=== PATIENT | male | born 1975 | race African-American/Black ===

== ENCOUNTER 2017-06-27 09:15 | Emergency (ER) | payer BC, OTHER ==
[2017-06-27] MEDS: predniSONE 20 MG TAB PO (11:04)
[2017-06-27] MEDS: IPRATROPIUM (NEB) 0.5 MG/2.5 ML AMP HHN (11:10)
[2017-06-27] MEDS: ALBUTEROL 0.083% (NEB) 2.5 MG/3 ML AMP HHN (11:10)
== END 2017-06-27 12:52 | disposition home or self-care (01) ==
LOC: FTE 09:15
DX: J45.901 Unspecified asthma with (acute) exacerbation (principal)
CPT/HCPCS: 94644; 99284-25

== ENCOUNTER 2017-10-17 23:48 | Emergency (ER) | payer BC ==
[2017-10-18] MEDS: SOD CHLORIDE 0.9% 1,000 ML IV (00:10)
[2017-10-18] MEDS: OXYMETAZOLINE 0.05% 15 ML NAS SPRAY NASAL (00:10)
[2017-10-18] MEDS: morphine 4 MG/ML VIAL IV ×2 (00:10→02:30)
[2017-10-18] MEDS: ONDANSETRON 4 MG INJ IV (00:10)
[2017-10-18 01:33] LABS: ADD MAN DIFF? NO
[2017-10-18 01:36] LABS: WHITE BLOOD COUNT 9.4 10^3/ul (4.8-10.8)
[2017-10-18 01:36] LABS: BASOPHILS % 0.2 % (0.0-2.0); EOSINOPHILS # 0.4 10^3/ul (0.0-0.5); EOSINOPHILS % 3.7 % (0.0-7.0); HEMATOCRIT 38.2 % (42.0-52.0); HEMOGLOBIN 12.4 g/dl (14.0-18.0); LYMPHOCYTES # 2.6 10^3/ul (0.8-2.9); LYMPHOCYTES % 28.2 % (15.0-51.0); MEAN CORPUSCULAR HEMOGLOBIN 25.7 pg (29.0-33.0); MEAN CORPUSCULAR HGB CONC 32.5 g/dl (32.0-37.0); MEAN CORPUSCULAR VOLUME 79.3 fl (82.0-101.0); MEAN PLATELET VOLUME 9.8 fl (7.4-10.4); MONOCYTE # 0.7 10^3/ul (0.3-0.9); MONOCYTES % 7.3 % (0.0-11.0); NEUTROPHIL # 5.6 10^3/ul (1.6-7.5); NEUTROPHILS % 60.1 % (39.0-77.0); PLATELET COUNT 210 10^3/UL (140-415); RED BLOOD COUNT 4.82 10^6/ul (4.70-6.10); RED CELL DISTRIBUTION WIDTH 13.5 % (11.5-14.5)
[2017-10-18 01:55] LABS: INR 1.02; PROTIME 13.5 Sec (11.9-14.9); PT RATIO 1.1
[2017-10-18 01:56] LABS: PARTIAL THROMBOPLASTIN TIME 27.4 Sec (25.0-35.0)
[2017-10-18 02:07] LABS: ALANINE AMINOTRANSFERASE 39 IU/L (13-69); ALBUMIN 3.6 g/dl (3.3-4.9); ALBUMIN/GLOBULIN RATIO 1.33; ALKALINE PHOSPHATASE 46 IU/L (42-121); ANION GAP 7 (8-16); ASPARTATE AMINO TRANSFERASE 20 IU/L (15-46); BILIRUBIN,INDIRECT 0.1 mg/dl (0-1.1); BILIRUBIN,TOTAL 0.1 mg/dl (0.2-1.3); BLOOD UREA NITROGEN 17 mg/dl (7-20); CALCIUM 8.6 mg/dl (8.4-10.2); CARBON DIOXIDE 28 mmol/L (21-31); CHLORIDE 110 mmol/L (97-110); CREATININE 0.86 mg/dl (0.61-1.24); GLUCOSE 136 mg/dl (70-220); POTASSIUM 4.2 mmol/L (3.5-5.1); SODIUM 141 mmol/L (135-144); TOTAL PROTEIN 6.3 g/dl (6.1-8.1)
[2017-10-18] MEDS: HYDROCODONE/APAP (5/325) TAB PO (04:18)
== END 2017-10-18 06:24 | disposition home or self-care (01) ==
LOC: E/R 23:48
DX: R04.0 Epistaxis (principal); J45.909 Unspecified asthma, uncomplicated
CPT/HCPCS: 30903; 80053; 85025; 85610; 85730; 96374; 96375; 96376; 99284-25